=== PATIENT | male | born 1970 | race Caucasian/White ===

== ENCOUNTER 2019-05-09 14:37 | Emergency (ER) | payer OTHER, SELFPAY ==
[2019-05-09 14:49] VITALS: BP 125/94; PULSE 120; RESP 20; TEMP 36.6; O2SAT 97
--- NOTE | 2019-05-09 15:18 | ED.WOUNDLAC ---
HPI - Wound/Laceration General Chief Complaint: Wound/Laceration Stated Complaint: laceration on L/hand Time Seen by Provider: 05/09/19 14:51 Source: patient and RN notes reviewed Mode of arrival: ambulatory Limitations: no limitations History of Present Illness HPI narrative: Patient presents today with a laceration to his left hand that was sustained as prior to arrival on some metal morales that he was installing at home. Reports the cut went through his leather gloves in his left hand at the base of his second finger. He is currently pain-free. Up-to-date on his tetanus vaccine. Denies numbness or tingling in the hand or fingers. Related Data Allergies Allergy/AdvReac Type Severity Reaction Status Date / Time hydrocodone Allergy Intermediate FEVER,SHAKI Verified 04/20/19 15:14 NESS acetaminophen Allergy Unknown Unknown Verified 04/20/19 15:14 Review of Systems Review of Systems: Narrative: CONSTITUTIONAL: Denies body aches, fever, chills, or sweats. EYES: Denies visual changes, redness, or discharge. ENT: Denies rhinorrhea, congestion, sore throat, or otalgia. CARDIOVASCULAR: Denies chest pain, palpitations, or edema. RESPIRATORY: Denies cough or dyspnea. GASTROINTESTINAL: Denies abdominal pain, nausea, vomiting, or diarrhea. GENITOURINARY: Denies dysuria or hematuria. SKIN: Denies rash, itching. + Laceration to left hand MUSCULOSKELETAL: Denies back pain, joint pain, or myalgia. NEUROLOGIC: Denies headache, numbness, tingling, or weakness. PSYCH: Denies depression or anxiety. PMFSH Social History Social History Smoking status: Never smoker Alcohol intake: current Gender identity (if verbalized by the patient): Male Comments At time of signature, I have reviewed and agree with nursing past medical, surgical, social and family history unless otherwise noted. Please see nursing chart for further information. There is no relevant family history pertinent to the presenting complaint Exam Narrative: Exam Narrative: GENERAL: Well-appearing, well-nourished, and in no acute distress. HEAD: Normocephalic, atraumatic. EYES: EOMI. No redness or drainage. Conjunctivae normal. ENT: Mucous membranes pink and moist. NECK: Normal AROM. CHEST: No respiratory distress. EXTREMITIES: Normal range of motion. No edema. SKIN: Warm, dry, no rash. Patient has a 3 cm full-thickness linear laceration to the base of the second finger at the level of the MCP on the lateral aspect. Patient has full range of motion against resistance. Distal sensation intact. Capillary refill normal. No foreign bodies noted. Wound was extensively pressure irrigated. NEURO: No focal deficits. Alert and oriented x3. Gait steady. PSYCH: Normal affect. No signs of depression or anxiety. Course Vital Signs Vital signs: Vital Signs Temperature 97.9 F 05/09/19 14:49 Pulse Rate 120 H 05/09/19 14:49 Respiratory Rate 20 05/09/19 14:49 Blood Pressure 125/94 H 05/09/19 14:49 Pulse Oximetry 97 05/09/19 14:49 Temperature 97.9 F 05/09/19 14:49 Pulse Rate 120 H 05/09/19 14:49 Respiratory Rate 20 05/09/19 14:49 Blood Pressure 125/94 H 05/09/19 14:49 Pulse Oximetry 97 05/09/19 14:49 Reviewed. Pt has been instructed to follow up with his PCP regarding his elevated blood pressure today. Procedures Laceration Laceration 1: Date: 05/09/19 Time: 15:18 Site: hand Side (If applicable): left Size (cm): 3 Description: linear Depth: simple, single layer Local Anesthetic: lidocaine 1% Amount of anesthesia used (mL): 3 Pre-repair: wound explored and irrigated extensively ====== Skin Level ====== Skin layer closed with: nylon Size (cm): 5-0 Number of sutures: 6 Technique: simple, interrupted ====== Subcutaneous Layer ====== ====== Muscle Layer ====== =
== END 2019-05-09 15:26 | disposition home or self-care (01) ==
PROVIDERS: Emergency Provider Nurse Practitioner
DX: S61.412A Laceration without foreign body of left hand, initial encounter (principal); W26.8XXA Contact with other sharp object(s), not elsewhere classified, initial encounter
CPT/HCPCS: 12002; 99212; G0463

== ENCOUNTER 2022-05-25 09:37 | Outpatient (CLI) | payer OTHER, SELFPAY ==
[2022-05-25 19:29] LABS: Alanine Aminotransferase 20 U/L (6-50); Albumin Level 4.4 g/dL (3.5-5.1); Alkaline Phosphatase 67 U/L (38-126); Anion Gap 7 mmol/L (8-16); Aspartate Amino Transferase 28 U/L (17-59); Bilirubin,Total 0.8 mg/dL (0.2-1.3); Blood Urea Nitrogen 17 mg/dL (9-20); Calcium 9.5 mg/dL (8.4-10.2); Carbon Dioxide 29 mmol/L (22-30); Chloride 103 mmol/L (98-107); Cholesterol 305 mg/dL (0-200); Estimated Glomerular Filt Rate > 60; Glucose 104 mg/dL (65-110); HDL Direct 32 mg/dL; Potassium 4.2 mmol/L (3.4-5.0); Sodium 139 mmol/L (137-145); Triglycerides 195 mg/dL (<150)
[2022-05-25 19:39] LABS: Hemoglobin A1C 5.7 % (<5.7); LDL Cholesterol Direct 185 mg/dL
[2022-05-25 19:56] LABS: Prostate Specific Antigen 2.3 ng/mL (< OR = 4.0)
== END 2022-05-25 09:38 | disposition home or self-care (01) ==
LOC: ANHGOSHLAB 09:39
PROVIDERS: PCP Family Medicine; Visit Provider Family Medicine
DX: Z12.5 Encounter for screening for malignant neoplasm of prostate (principal); R73.01 Impaired fasting glucose; Z13.228 Encounter for screening for other metabolic disorders; Z13.220 Encounter for screening for lipoid disorders
CPT/HCPCS: 36415; 80053; 80061; 83036; 84153; G0103

== ENCOUNTER → 2022-05-25 10:04 | Outpatient (CLI) | payer OTHER, SELFPAY ==
--- NOTE | ~2022-05-25 | XR_ITS ---
AP view of the pelvis and AP and lateral views of the right hip Clinical history: Pain Findings: No acute fracture or dislocation is seen. Osseous alignment is anatomic. Bilateral hip and SI joint spaces are preserved. Soft tissues are unremarkable. Impression: No significant abnormality is seen. Reviewed, dictated and finalized at [facility]. ARA BARK CUTTER Impression: No significant abnormality is seen.
--- NOTE | ~2022-05-25 | XR_ITS ---
AP and lateral views of the sacrum/coccyx Clinical history: Pain FINDINGS: No fracture or dislocation seen. Visualized joint spaces are intact. Soft tissues are unrem arkable. IMPRESSION: Unremarkable exam. Reviewed, dictated and finalized at [facility] [place]. NGUAL PATIENT SUPPORT CASEWORKER IMPRESSION: Unremarkable exam.
== END ==
PROVIDERS: PCP Family Medicine; Visit Provider Family Medicine
DX: M25.551 Pain in right hip (principal)
CPT/HCPCS: 72220; 73502

== ENCOUNTER 2022-10-23 08:17 | Outpatient (CLI) | payer OTHER, SELFPAY ==
--- NOTE | 2022-11-14 10:41 | WPDSLEEPSTUD ---
Sleep Study Date of Study: 10/23/22 Ordering Provider: Pio Ackerman DO Interpreting Physician: Sally Prado MD Sleep Study Type: Split Polysomnogram Height: 1.73 m Weight: 89.811 kg Body Mass Index: 30.1 Neck Circumference (inches): 17.5 [place]: 8 Reason for Sleep Study Known obstructive sleep apnea, has used CPAP in the past * August 28, 2011 split night study, AHI 11.3 treated with CPAP 7 cm water pressure Sleep History Venu Doherty is a 52-year-old man with history of hypertension and ADHD who presents for a split night sleep study to re-evaluate his obstructive sleep apnea. He has used CPAP in the past. He always awakens from sleep feeling short of breath. He frequently awakens at night with heartburn, belching or coughing. He always snores loudly enough that others complain. He Constantly has trouble sleeping when he has a cold. He constantly wakes up gasping for breath during the night. He frequently has breathing problems at night. He constantly sweats excessively at night. He occasionally notices his heart pounding or beating irregularly during the night. He occasionally falls asleep during the day. He never falls asleep involuntarily and never falls asleep while driving. He never experiences loss of muscle tone with strong emotion. He never feels paralyzed on waking or falling asleep. He never experiences vivid dreams upon waking or falling asleep. He never feel afraid of going to sleep. He rarely has nightmares. He never recalls his dreams. He rarely has thoughts racing through his mind. He never feels sad or depressed. He never feels anxiety or worry about things. He occasional notices parts of his body jerk. He occasionally kicks during the night. He never feels crawling or aching feelings in his legs. He never feels leg pain at night. He never grinds his teeth and never has morning jaw pain. He occasionally feels bothered by pain during the day and is occasionally awakened by pain during the night. He frequentlywakes up feeling stiff, sore, and achy in the morning with pain in his neck, spine, or joints. Normal bedtime is around 10:00 p.m., usually falling asleep within 20 minutes. He typically gets between 6 to 7 hours of sleep at night. His wake up time is 5:00 a.m. He wakes once or twice during the night, rolls over, and returns to sleep. On weekends, he may go to bed as late as midnight, wakes between 5:00 a.m. and 6:00 a.m. in general he does not take naps. Sometimes a short nap lasting 10 or 15 minutes may be refreshing. He is drowsy for an hour after waking. He feels better in the morning compared to other times of day. Habits:??Tobacco: never Caffeine: 2 cups a day. Alcohol: 3 servings per week. Recreational substances: none PMFSH Past Medical History Medical History (Updated 11/14/22 @ 11:22 by Sally Prado MD) Attention-deficit hyperactivity disorder, unspecified type Essential (primary) hypertension Major depressive disorder, recurrent, mild Mixed hyperlipidemia Obesity, unspecified Obstructive sleep apnea Ureteral stent displacement Surgical History Surgical History H/O hernia repair Hx of colonoscopy Family History Family History Father Cerebrovascular accident Family history of kidney disease Family history of lung cancer Family history of glaucoma Family history of kidney stones Mother Diabetes mellitus Family history of elevated blood lipids Grandparent Family history of Alzheimer's disease Other No family history of cardiovascular disease No family history of cerebrovascular accident (CVA) No family history of malignant neoplasm Social History Social History Smoking status: Never smoker Alcohol intake: current Lack of Transportation: No Lack of Food: Never True C
[2022-11-14 10:59] VITALS: BMI 30.1
== END 2022-10-24 05:20 | disposition home or self-care (01) ==
LOC: ANHCSM 08:19
PROVIDERS: PCP Family Medicine; Visit Provider Family Medicine
DX: G47.33 Obstructive sleep apnea (adult) (pediatric) (principal)
CPT/HCPCS: 95811

== ENCOUNTER 2022-12-31 18:37 | Emergency (ER) | payer OTHER, SELFPAY ==
[2022-12-31 18:48] VITALS: BP 132/72; PULSE 120; RESP 16; TEMP 37.7; O2SAT 97
--- NOTE | 2022-12-31 19:04 | ED.URI ---
HPI - URI/Sore Throat General Chief Complaint: Upper Respiratory Infection Stated Complaint: sorethroat,congestion Time Seen by Provider: 12/31/22 19:05 Source: patient, RN notes reviewed and old records reviewed Mode of arrival: ambulatory Limitations: no limitations History of Present Illness HPI Narrative: 52 year old male presents to express care with complaints of having sinus congestion with drainage, facial pressure, ear pressure and headache since getting his flu shot and shingles shot on the 5th of the month. He reports that he has also had cough with some discomfort to chest and back with the cough. Patient reports that for the past 3 days he has been having fevers up to 100.7F and has been taking some Kenia D and also some cough medications OTC without improvement. Patient reports that he has been taking Ibuprofen for his temperature and body aches.Patient reports that he has had negative COVID test at home for the past 2 days. MD elicited complaint: fever, cough, sore throat, rhinorrhea, nasal congestion and sinus pain Onset (ago): day(s) (10) Pain scale (0-10): 5 Able to tolerate fluids by mouth: Yes Treatments prior to arrival: ibuprofen and other (Kenia D, cough meds) Related Data Home Medications Medication Instructions Recorded Confirmed fexofenadine 60 mg-pseudoephedrine 1 tablet PO DAILY 12/31/22 12/31/22 ER 120 mg tablet,ext.release,12 hr (Kenia-D 12 Hour) terbinafine HCl 250 mg tablet 250 mg PO DAILY 12/31/22 12/31/22 Allergies Allergy/AdvReac Type Severity Reaction Status Date / Time hydrocodone AdvReac Intermediate FEVER,SHAKI Verified 12/31/22 18:40 NESS Review of Systems Review of Systems: CONSTITUTIONAL: Reports malaise, chills, sweats, or fever. EYES: Denies visual changes, redness, or discharge. ENT: Reports rhinorrhea, congestion, sinus pain, otalgia and sore throat. CARDIOVASCULAR: Denies chest pain, palpitations, or edema. RESPIRATORY: Reports cough.? Denies dyspnea. GASTROINTESTINAL: Denies abdominal pain, nausea, vomiting, diarrhea SKIN: Denies rash or itching. MUSCULOSKELETAL: Reports myalgia. NEUROLOGIC: Reports headache. All systems reviewed & are unremarkable except as noted in HPI and below PMFSH Past Medical History Medical History Attention-deficit hyperactivity disorder, unspecified type Essential (primary) hypertension Major depressive disorder, recurrent, mild Mixed hyperlipidemia Obesity, unspecified Obstructive sleep apnea Ureteral stent displacement Surgical History Surgical History H/O hernia repair Hx of colonoscopy Family History Family History Father Cerebrovascular accident Family history of kidney disease Family history of lung cancer Family history of glaucoma Family history of kidney stones Mother Diabetes mellitus Family history of elevated blood lipids Grandparent Family history of Alzheimer's disease Other No family history of cardiovascular disease No family history of cerebrovascular accident (CVA) No family history of malignant neoplasm Social History Social History Smoking status: Never smoker Alcohol intake: current Lack of Transportation: No Lack of Food: Never True Current Housing: I Have Housing Concerned About Future Housing: No Difficulty Paying Gas/Electric Bills: No Difficulty Paying for Meds: YES Currently Unemployed: YES Education: Bachelor's Degree Difficulty w/ Childcare or Family Care: No Gender identity (if verbalized by the patient): Male Comments At time of signature, agree with nursing past medical, surgical, social and family history. There is no relevant family history pertinent to the presenting complaint Exam Narrative:
== END 2022-12-31 19:20 | disposition home or self-care (01) ==
PROVIDERS: Emergency Provider Registered Nurse
DX: J01.40 Acute pansinusitis, unspecified (principal); I10 Essential (primary) hypertension; E78.2 Mixed hyperlipidemia; E66.9 Obesity, unspecified; Z68.29 Body mass index [BMI] 29.0-29.9, adult
CPT/HCPCS: 87081; 87804; 87880; 99213; G0463

== ENCOUNTER 2023-01-14 10:52 | Outpatient (CLI) | payer OTHER, SELFPAY ==
[2023-01-14 13:06] LABS: Basophils Percent Auto 0.4 % (0.2-1.2); Eosinophils Percent Auto 0.4 % (0-4.4); Hematocrit 37.9 % (42.0-52.0); Hemoglobin 11.9 g/dL (14.0-18.0); Immature Granulocyte Absolute 0.02 K/mm3 (0.00-0.031); Immature Granulocyte Percent A 0.2 % (0-0.5); Lymphocytes Percent Auto 18.4 % (18.3-44.2); Mean Corpuscular HGB Conc 31.4 g/dl (32-36); Mean Corpuscular Hemoglobin 28.8 pg (26-34); Mean Corpuscular Volume 91.8 fl (80-100); Mean Platelet Volume 10.9 fl (7.4-10.4); Monocytes Absolute Auto 0.9 K/mm3 (0.1-0.6); Monocytes Percent Auto 10.1 % (2.6-8.5); Neutrophils Absolute Auto 6.5 K/mm3 (1.3-6.7); Neutrophils Percent Auto 70.5 % (45.5-73.1); Platelet Count Result 363 k/mm3 (150-375); Red Blood Count 4.13 M/mm3 (4.6-6.20); Red Cell Distribution Width 13.4 % (11.5-14.5); White Blood Count 9.2 K/mm3 (4.5-10.0)
[2023-01-14 13:25] LABS: Alanine Aminotransferase 28 U/L (6-50); Alkaline Phosphatase 77 U/L (38-126); Anion Gap 6 mmol/L (8-16); Aspartate Amino Transferase 33 U/L (17-59); Bilirubin,Total 0.7 mg/dL (0.2-1.3); Blood Urea Nitrogen 14 mg/dL (9-20); Calcium 9.5 mg/dL (8.4-10.2); Carbon Dioxide 29 mmol/L (22-30); Chloride 103 mmol/L (98-107); Cholesterol 208 mg/dL (0-200); Estimated Glomerular Filt Rate > 60; Glucose 122 mg/dL (65-110); HDL Direct 21 mg/dL; Potassium 3.9 mmol/L (3.4-5.0); Sodium 138 mmol/L (137-145); Triglycerides 86 mg/dL (<150)
[2023-01-14 13:46] LABS: Prostate Specific Antigen 2.8 ng/mL (< OR = 4.0)
[2023-01-14 13:50] LABS: LDL Cholesterol Direct 146 mg/dL
== END 2023-01-14 10:53 | disposition home or self-care (01) ==
LOC: ANHGOSHLAB 10:53
PROVIDERS: PCP Family Medicine; Visit Provider Family Medicine
DX: Z12.5 Encounter for screening for malignant neoplasm of prostate (principal); R53.83 Other fatigue; E78.2 Mixed hyperlipidemia; Z13.228 Encounter for screening for other metabolic disorders
CPT/HCPCS: 36415; 80053; 80061; 84153; 85025; G0103

== ENCOUNTER 2023-12-13 13:18 | Emergency (ER) | payer OTHER, SELFPAY ==
[2023-12-13 13:31] VITALS: BP 140/84; PULSE 99; RESP 14; TEMP 36.6; O2SAT 96
[2023-12-13 13:33] VITALS: BP 140/84; PULSE 99; RESP 14; TEMP 36.6; O2SAT 96
--- NOTE | 2023-12-13 13:37 | ED.ABDPAIN ---
HPI - Abdominal Pain General Chief Complaint: Abdominal Pain Stated Complaint: belly pain and bacl pain Time Seen by Provider: 12/13/23 13:39 Source: patient, RN notes reviewed and old records reviewed Mode of arrival: ambulatory Limitations: no limitations History of Present Illness HPI narrative: 53-year-old male presents to the [facility] with complaints of right upper quadrant, epigastric pain for 11 days that has been intermittent. States pain increases with eating Started with some back pain today. Reports trying to call primary which was not able to get through Related Data Allergies Allergy/AdvReac Type Severity Reaction Status Date / Time hydrocodone AdvReac Intermediate FEVER,SHAKI Verified 12/13/23 13:32 NESS Review of Systems Review of Systems: All systems reviewed & are unremarkable except as noted in HPI and below Constitutional: Constitutional: Reports no additional constitutional complaints Eyes: Eyes: Reports no additional eye complaints ENT: Reports system reviewed and no additional complaints, except as documented Cardiovascular: Cardiovascular: Reports no additional cardiovascular complaints, Denies chest pain and Denies dyspnea Respiratory: Respiratory: Reports no additional respiratory complaints, Denies chest congestion, Denies cough and Denies dyspnea Gastrointestinal: Gastrointestinal: Reports as per HPI, Reports abdominal pain, Reports nausea and Denies vomiting Musculoskeletal: Musculoskeletal: Reports no additional musculoskeletal complaints Integumentary/Breasts: Skin/Breast: Reports system reviewed and no additional complaints, except as docu Neurologic: Reports system reviewed and no additional complaints, except as documented Psychiatric: Psychiatric: Reports no additional psychiatric complaints Allergic/Immunologic: Allergic/Immunologic: Reports no additional allergic/immunologic complaints PMFSH Past Medical History Medical History Attention-deficit hyperactivity disorder, unspecified type Essential (primary) hypertension Major depressive disorder, recurrent, mild Mixed hyperlipidemia Obesity, unspecified Obstructive sleep apnea Ureteral stent displacement Surgical History Surgical History H/O hernia repair Hx of colonoscopy Family History Family History Father Cerebrovascular accident Family history of kidney disease Family history of lung cancer Family history of glaucoma Family history of kidney stones Mother Diabetes mellitus Family history of elevated blood lipids Grandparent Family history of Alzheimer's disease Other No family history of cardiovascular disease No family history of cerebrovascular accident (CVA) No family history of malignant neoplasm Social History Social History Smoking status: Never smoker Alcohol intake: current Lack of Transportation: No Lack of Food: Never True Current Housing: I Have Housing Concerned About Future Housing: No Difficulty Paying Gas/Electric Bills: No Difficulty Paying for Meds: No Currently Unemployed: No Education: Bachelor's Degree Difficulty w/ Childcare or Family Care: No Gender identity (if verbalized by the patient): Male Comments At the time of my signature, I reviewed and agree with the nursing past medical, surgical, social, and family history. There is no relevant family history pertinent to the patient complaint. Exam Const: General: cooperative, healthy appearing, comfortable, no acute distress, well developed, alert and well nourished Nutritional Appearance: well nourished Orientation/consciousness: patient oriented x3 Limitations: no limitations HENMT: Head: normal to inspection Ears: hearing grossly normal bilaterally and external ears normal
== END 2023-12-13 14:05 | disposition home or self-care (01) ==
PROVIDERS: Emergency Provider Nurse Practitioner
DX: R10.13 Epigastric pain (principal); R10.11 Right upper quadrant pain; I10 Essential (primary) hypertension; E78.2 Mixed hyperlipidemia; E66.9 Obesity, unspecified; Z68.32 Body mass index [BMI] 32.0-32.9, adult; Z96.0 Presence of urogenital implants
CPT/HCPCS: 99213; G0463